=== PATIENT | female | born 1995 | race Caucasian/White ===

== ENCOUNTER → 2020-06-19 17:32 | Outpatient (CLI) | payer OTHER, SELFPAY ==
[2020-06-19 17:52] LABS: Microscopic, Urine URINE MICROSCOPIC (MICROSCOPIC)
[2020-06-19 18:17] LABS: Basophils % 0.3 % (0.1-2.0); Eosinophils # 0.2 K/mm3 (0.0-0.4); Eosinophils % 1.1 % (0.1-12.0); Hematocrit 41.8 % (37.0-47.0); Hemoglobin 13.6 g/dL (12.2-16.2); Lymphocytes # 2.7 K/mm3 (0.7-4.5); Lymphocytes % 19.4 % (10-50); Mean Corpuscular HGB Conc 32.5 g/dL (31.8-35.4); Mean Corpuscular Hemoglobin 28.8 pg (27.0-31.2); Mean Corpuscular Volume 88.5 fl (81-99); Mean Platelet Volume 7.6 fl (7.4-10.4); Monocytes # 0.6 K/mm3 (0.1-1.0); Monocytes % 4.2 % (1.7-9.3); Neutrophils # 10.5 K/mm3 (1.8-7.8); Neutrophils % 75.1 % (37.0-80.0); Platelet Count 277 K/mm3 (142-424); Red Blood Count 4.72 M/mm3 (4.20-5.40); Red Cell Distribution Width 12.9 % (11.5-17.5)
[2020-06-19 18:47] LABS: Erythrocyte Sedimentation Rate 14 mm/hr (0-20)
[2020-06-19 18:55] LABS: Chloride 102 mmol/L (98-107); Potassium 3.9 mmoL/L (3.5-5.1); Sodium 138 mmol/L (136-145)
[2020-06-19 18:57] LABS: Alanine Aminotransferase 16 U/L (12-78); Aspartate Amino Transferase 23 U/L (14-36); Blood Urea Nitrogen 15 mg/dl (7-17); Estimated Glomerular Filt Rate 87 ml/min (>60); GFR (African American) 105 ML/MIN (>60)
[2020-06-19 18:58] LABS: Albumin Level 4.4 g/dl (3.5-5.0); Albumin/Globulin Ratio 1.5 (1.1-1.8); Alkaline Phosphatase 118 U/L (38-126); Anion Gap 12.9 mEq/L (5-15); Bilirubin,Total 0.4 mg/dl (0.2-1.3); Calcium 9.5 mg/dl (8.4-10.2); Carbon Dioxide 27 mmol/L (22.0-30.0); Globulin 2.9 g/dL (1.3-3.2); Glucose 176 mg/dl (74-100); Total Protein,Serum 7.3 g/dl (6.3-8.2)
[2020-06-19 19:23] LABS: Appearance,Urine CLEAR (Clear); Bilirubin,Urine Negative (Negative); Blood, Urine Negative (Negative); Color,Urine YELLOW (Yellow); Glucose,Urine (UA) TRACE (Negative); Ketones,Urine Negative (Negative); Leukocyte Esterase,Urine Negative (Negative); Nitrate,Urine Negative (Negative); Protein,Urine Negative (Negative); Specific Gravity, Urine 1.025 (1.005-1.030); Urobilinogen,Urine 0.2 EU/dl (0.2)
[2020-06-19 20:06] LABS: Bacteria,Urine Trace /lpf; WBC,Urine Occasional #/hpf (0-3)
[2020-06-21 10:05] LABS: Thyroid Peroxidase Antibodies 204 IU/mL (0-34)
[2020-06-22 19:37] LABS: Thyroid Stimulating Immunoglob <0.10 IU/L (0.00-0.55)
[2020-06-25 19:23] LABS: Beef (Bos spp) IgE <0.10 kU/L (<0.35); Lamb/Mutton (Ovis spp) IgE <0.10 kU/L (<0.35)
[2020-06-26 10:33] LABS: Antinuclear Antibodies, IFA Negative (.)
[2020-06-28 22:42] LABS: Complement C1q, Quantitative 15.2 mg/dL (10.3-20.5)
== END ==
PROVIDERS: Visit Provider Allergy & Immunology
DX: L50.1 Idiopathic urticaria (principal); L50.8 Other urticaria
CPT/HCPCS: 36415; 80053; 81001; 83520; 84445; 85025; 85651; 86003; 86008; 86038; 86160; 86352; 86376

== ENCOUNTER → 2021-09-09 11:13 | Outpatient (CLI) | payer OTHER, SELFPAY ==
[2021-09-09 11:54] LABS: HCG,Quantitative 232 mIU/ml (0-5.42)
[2021-09-10 08:37] LABS: Progesterone 26.5 ng/mL (.)
== END ==
PROVIDERS: Visit Provider Obstetrics & Gynecology Reproductive Endocrinology
DX: Z32.00 Encounter for pregnancy test, result unknown (principal)
CPT/HCPCS: 36415; 84144; 84702

== ENCOUNTER → 2021-09-11 11:03 | Outpatient (CLI) | payer OTHER, SELFPAY ==
[2021-09-11 11:56] LABS: HCG,Quantitative 505 mIU/ml (0-5.42)
== END ==
PROVIDERS: Visit Provider Obstetrics & Gynecology Reproductive Endocrinology
DX: Z32.01 Encounter for pregnancy test, result positive (principal)
CPT/HCPCS: 36415; 84702

== ENCOUNTER → 2021-10-09 17:38 | Outpatient (CLI) | payer BC, SELFPAY ==
[2021-10-09 18:24] LABS: Basophils # 0.1 K/mm3 (0-0.2); Basophils % 0.8 % (0.1-2.0); Eosinophils % 0.3 % (0.1-12.0); Hematocrit 38.1 % (37.0-47.0); Lymphocytes # 2.4 K/mm3 (0.7-4.5); Lymphocytes % 16.3 % (10-50); Mean Corpuscular HGB Conc 34.1 g/dL (31.8-35.4); Mean Corpuscular Hemoglobin 30.5 pg (27.0-31.2); Mean Corpuscular Volume 89.6 fl (81-99); Monocytes # 0.5 K/mm3 (0.1-1.0); Monocytes % 3.4 % (1.7-9.3); Neutrophils # 11.6 K/mm3 (1.8-7.8); Neutrophils % 79.2 % (37.0-80.0); Platelet Count 290 K/mm3 (142-424); Red Blood Count 4.25 M/mm3 (4.20-5.40); Red Cell Distribution Width 13.4 % (11.5-17.5); White Blood Count 14.6 K/mm3 (4.8-10.8)
[2021-10-09 19:07] LABS: Hemoglobin A1C 6.4 % (4.0-6.0)
[2021-10-09 19:24] LABS: Thyroid Stimulating Hormone 5.58 uIU/mL (0.465-4.68)
[2021-10-11 09:15] LABS: Rubella Antibodies, IgM <20.0 AU/mL (0.0-19.9)
[2021-10-11 11:12] LABS: HIV Screen 4th Generation wRfx Non Reactive (Non Reactive)
[2021-10-12 02:17] LABS: Rubella Antibodies, IgG <0.90 index (Immune >0.99)
[2021-11-01 17:30] LABS: Hep A Ab, IgM NEGATIVE; Hepatitis B Core Antibody IgM NEGATIVE; Hepatitis B Surface Antigen NEGATIVE; Hepatitis C Antibody <0.1
== END ==
PROVIDERS: PCP Nurse Practitioner Family; Visit Provider Obstetrics & Gynecology
DX: Z34.91 Encounter for supervision of normal pregnancy, unspecified, first trimester (principal); O24.019 Pre-existing type 1 diabetes mellitus, in pregnancy, unspecified trimester
CPT/HCPCS: 36415; 80074; 83036; 84443; 85025; 86703; 86762; 86850; G0432

== ENCOUNTER → 2021-10-17 18:08 | Outpatient (CLI) | payer BC, SELFPAY ==
[2021-11-01 18:35] LABS: Hep A Ab, IgM NEGATIVE; Hepatitis B Core Antibody IgM NEGATIVE; Hepatitis B Surface Antigen NEGATIVE; Hepatitis C Antibody <0.1
== END ==
PROVIDERS: Visit Provider Obstetrics & Gynecology
DX: Z34.91 Encounter for supervision of normal pregnancy, unspecified, first trimester (principal)
CPT/HCPCS: 80074

== ENCOUNTER → 2022-04-01 18:23 | Outpatient (CLI) | payer BC, SELFPAY ==
[2022-04-01 18:59] LABS: Basophils # 0.1 K/mm3 (0-0.2); Basophils % 0.8 % (0.1-2.0); Eosinophils # 0.1 K/mm3 (0.0-0.4); Eosinophils % 0.5 % (0.1-12.0); Hematocrit 33.8 % (37.0-47.0); Hemoglobin 11.6 g/dL (12.2-16.2); Lymphocytes % 16.4 % (10-50); Mean Corpuscular HGB Conc 34.3 g/dL (31.8-35.4); Mean Corpuscular Hemoglobin 30.1 pg (27.0-31.2); Mean Corpuscular Volume 87.6 fl (81-99); Mean Platelet Volume 8.8 fl (7.4-10.4); Monocytes # 0.5 K/mm3 (0.1-1.0); Monocytes % 4.2 % (1.7-9.3); Neutrophils # 9.7 K/mm3 (1.8-7.8); Neutrophils % 78.1 % (37.0-80.0); Platelet Count 232 K/mm3 (142-424); Red Blood Count 3.86 M/mm3 (4.20-5.40); Red Cell Distribution Width 13.9 % (11.5-17.5); White Blood Count 12.4 K/mm3 (4.8-10.8)
[2022-04-01 19:46] LABS: Activated Partial Thrombo Time 27.9 seconds (22.8-30.6); Fibrinogen 436 mg/dL (229.9-363.5); INR 0.86 (0.9-1.1); Prothrombin Time 9.4 seconds (10.1-12.5)
[2022-04-01 22:28] LABS: D-Dimer 1.07 ug/mL (0.0-0.5); Potassium 3.8 mmoL/L (3.5-5.1); Sodium 139 mmol/L (136-145)
[2022-04-01 22:29] LABS: Alanine Aminotransferase 18 U/L (12-78); Anion Gap 14.8 mEq/L (5-15); Aspartate Amino Transferase 28 U/L (14-36); Blood Urea Nitrogen 8 mg/dl (7-17); Calcium 8.1 mg/dl (8.4-10.2); Carbon Dioxide 23 mmol/L (22.0-30.0); Chloride 105 mmol/L (98-107); Estimated Glomerular Filt Rate 100 ml/min (>60); GFR (African American) 121 ML/MIN (>60); Glucose 124 mg/dl (74-100); Uric Acid 4.6 mg/dl (2.5-6.2)
== END ==
PROVIDERS: Obstetrics & Gynecology; PCP Nurse Practitioner Family
DX: O24.019 Pre-existing type 1 diabetes mellitus, in pregnancy, unspecified trimester (principal)
CPT/HCPCS: 36415; 80048; 84450; 84460; 84550; 85025; 85378; 85384; 85610; 85730

== ENCOUNTER → 2022-04-14 07:03 | Outpatient (CLI) | payer BC, SELFPAY ==
[2022-04-14 20:24] LABS: Basophils # 0.1 K/mm3 (0-0.2); Basophils % 0.5 % (0.1-2.0); Eosinophils % 0.2 % (0.1-12.0); Hematocrit 35.3 % (37.0-47.0); Hemoglobin 11.7 g/dL (12.2-16.2); Lymphocytes # 2.1 K/mm3 (0.7-4.5); Lymphocytes % 17.4 % (10-50); Mean Corpuscular Hemoglobin 29.3 pg (27.0-31.2); Mean Corpuscular Volume 88.7 fl (81-99); Mean Platelet Volume 9.2 fl (7.4-10.4); Monocytes # 0.6 K/mm3 (0.1-1.0); Monocytes % 4.8 % (1.7-9.3); Neutrophils # 9.3 K/mm3 (1.8-7.8); Neutrophils % 77.1 % (37.0-80.0); Platelet Count 191 K/mm3 (142-424); Red Blood Count 3.99 M/mm3 (4.20-5.40); Red Cell Distribution Width 13.5 % (11.5-17.5); White Blood Count 12.1 K/mm3 (4.8-10.8)
[2022-04-14 21:00] LABS: Chloride 103 mmol/L (98-107); Sodium 137 mmol/L (136-145)
[2022-04-14 21:01] LABS: Potassium 3.5 mmoL/L (3.5-5.1)
[2022-04-14 21:03] LABS: Alanine Aminotransferase 17 U/L (12-78); Albumin Level 3.2 g/dl (3.5-5.0); Albumin/Globulin Ratio 1.1 (1.1-1.8); Alkaline Phosphatase 161 U/L (38-126); Anion Gap 12.5 mEq/L (5-15); Aspartate Amino Transferase 29 U/L (14-36); Bilirubin,Total 0.2 mg/dl (0.2-1.3); Blood Urea Nitrogen 9 mg/dl (7-17); Carbon Dioxide 25 mmol/L (22.0-30.0); Estimated Glomerular Filt Rate 100 ml/min (>60); GFR (African American) 121 ML/MIN (>60); Globulin 2.8 g/dL (1.3-3.2)
[2022-04-14 21:04] LABS: Calcium 8.7 mg/dl (8.4-10.2); Glucose 147 mg/dl (74-100)
[2022-04-14 21:19] LABS: Creatinine,Urine Random 110 mg/dL (Not Estab.)
[2022-04-14 21:21] LABS: Uric Acid 5.1 mg/dl (2.5-6.2)
== END ==
PROVIDERS: PCP Nurse Practitioner Family
DX: O13.4 Gestational [pregnancy-induced] hypertension without significant proteinuria, complicating childbirth (principal)
CPT/HCPCS: 36415; 80053; 82570; 84155; 84550; 85025

== ENCOUNTER → 2022-06-21 14:05 | Outpatient (CLI) | payer BC, SELFPAY ==
[2022-06-21 14:28] LABS: Chloride 105 mmol/L (98-107); Sodium 141 mmol/L (136-145)
[2022-06-21 14:29] LABS: Potassium 3.9 mmoL/L (3.5-5.1)
[2022-06-21 14:31] LABS: Alanine Aminotransferase 36 U/L (12-78); Albumin Level 4.2 g/dl (3.5-5.0); Albumin/Globulin Ratio 1.6 (1.1-1.8); Alkaline Phosphatase 113 U/L (38-126); Anion Gap 13.9 mEq/L (5-15); Aspartate Amino Transferase 36 U/L (14-36); Bilirubin,Total 0.3 mg/dl (0.2-1.3); Blood Urea Nitrogen 11 mg/dl (7-17); Calcium 8.4 mg/dl (8.4-10.2); Carbon Dioxide 26 mmol/L (22.0-30.0); Estimated Glomerular Filt Rate 53 ml/min (>60); GFR (African American) 65 ML/MIN (>60); Globulin 2.7 g/dL (1.3-3.2); Glucose 268 mg/dl (74-100); Magnesium 1.7 mg/dl (1.6-2.3); Total Protein,Serum 6.9 g/dl (6.3-8.2)
[2022-06-21 14:38] LABS: Basophils % 0.3 % (0.1-2.0); Eosinophils % 0.4 % (0.1-12.0); Hematocrit 33.2 % (37.0-47.0); Hemoglobin 11.2 g/dL (12.2-16.2); Lymphocytes # 1.6 K/mm3 (0.7-4.5); Lymphocytes % 20.3 % (10-50); Mean Corpuscular HGB Conc 33.6 g/dL (31.8-35.4); Mean Corpuscular Hemoglobin 26.6 pg (27.0-31.2); Mean Corpuscular Volume 79.2 fl (81-99); Mean Platelet Volume 7.7 fl (7.4-10.4); Monocytes # 0.3 K/mm3 (0.1-1.0); Monocytes % 4.1 % (1.7-9.3); Neutrophils # 5.8 K/mm3 (1.8-7.8); Neutrophils % 74.7 % (37.0-80.0); Platelet Count 278 K/mm3 (142-424); Red Blood Count 4.19 M/mm3 (4.20-5.40); Red Cell Distribution Width 13.8 % (11.5-17.5); White Blood Count 7.8 K/mm3 (4.8-10.8)
[2022-06-21 15:03] LABS: Thyroid Stimulating Hormone 1.85 uIU/mL (0.465-4.68)
== END ==
PROVIDERS: PCP Nurse Practitioner Family; Visit Provider Nurse Practitioner Family
DX: O16.5 Unspecified maternal hypertension, complicating the puerperium (principal); E83.42 Hypomagnesemia
CPT/HCPCS: 36415; 80053; 83735; 84443; 85025

== ENCOUNTER → 2022-08-24 08:00 | Outpatient (CLI) | payer BC, SELFPAY ==
--- NOTE | 2022-08-24 08:01 | CA_ITS ---
APPROVED REPORT EXAM: Comprehensive 2D, Doppler, and color-flow Echocardiogram Glove Presser: Dilma Johnson CRT Ht: 5 ft 3 in Wt: 248lbs BSA: 2.12 BP: 121/80 mmHg Indications: Abnormal ECG, Chest Pain, Shortness of Breath, Diabetes 2D Dimensions LVOT 2.03 cm (M/F) 1.5-2.5 LA Volume 22.10 mL LA Volume Index 10.20 mL/m2 (M/F) 16-34 M-Mode Dimensions RVDd 2.83 cm (0.9-2.6) LA Diam 3.78 cm (1.9-4.0) LVDd 4.38 cm (3.5-5.7) Ao Diam 3.46 cm (2.0-3.7) LVDs 2.98 cm (3.5-5.7) IVSd 1.43 cm (0.6-1.1) PWd 0.83 cm (0.6-1.1) EF (Teich) 60.40% FS 32.00% EDV (Teich) 86.80 mL TAPSE 1.97 (<1.7) ESV (Teich) 34.40 mL LV Diastology E Decel Time 217.00 (160-240 msec) E/A Ratio 1.54 MED E' 5.50 (< 7 cm/sec) MED A' 8.20 cm/s E'/MED E' Ratio 11.22 (>14) LAT E' 7.00 (<10 cm/sec) LAT A' 5.10 cm/s E/LAT E' Ratio 8.81 (>14) Aortic Valve AO Peak GR. 4.80 mmHg Mitral Valve MV A Velocity 40.00 (40-130 cm/s) E/A Ratio 1.54 MV Decel. Time 217.00 (160-240 ms) Pulmonary Valve PV Peak Velocity 146.00 (50-150 cm/s) Tricuspid Valve TR P. Velocity 248.00 cm/s RAP Estimate 10.00 mmHg RVSP 34.60 mmHg Left Ventricle Left atrium is normal size, left ventricle is normal size, estimated ejection fraction 55% with no regional wall motion abnormality, diastolic parameters are inconclusive in the study. Right Ventricle Right atrium right ventricular normal size and contractility. Aortic Valve Aortic valve is grossly normal there is no aortic stenosis or aortic insufficiency. Mitral Valve Mitral valve is grossly normal, there is trace mitral regurgitation. Tricuspid Valve Tricuspid valve grossly normal, there is trace tricuspid regurgitation, tricuspid regurgitation jet velocity is inadequate for calculation of the right ventricular systolic pressure. Pulmonic Valve Pulmonic valve is poorly visualized. Great Vessels Aortic root is normal size. A mild Inferior vena cava is normal size with normal inspiratory collapse. Pericardium No significant pericardial effusion noted. Conclusion 1. Normal left ventricular size preserved left ventricular systolic function, estimated ejection fraction 55% with no regional wall motion abnormality, diastolic parameters are inconclusive. 2. Trace mitral and tricuspid regurgitation of no hemodynamic significance. 3. No significant pericardial effusion noted. 4. Inferior vena cava is normal size with normal inspiratory collapse. Electronically signed by : José Luis Logan MD 08/24/2022 13:03:09
== END ==
PROVIDERS: PCP Nurse Practitioner Family; Visit Provider Internal Medicine Cardiovascular Disease
DX: O16.5 Unspecified maternal hypertension, complicating the puerperium (principal); R06.00 Dyspnea, unspecified; R07.9 Chest pain, unspecified; R94.31 Abnormal electrocardiogram [ECG] [EKG]
CPT/HCPCS: 93306

== ENCOUNTER → 2022-08-27 14:37 | Outpatient (CLI) | payer BC, SELFPAY ==
[2022-08-27 15:05] LABS: Chloride 101 mmol/L (98-107)
[2022-08-27 15:06] LABS: Potassium 3.4 mmoL/L (3.5-5.1); Sodium 137 mmol/L (136-145)
[2022-08-27 15:08] LABS: Blood Urea Nitrogen 11 mg/dl (7-17); Estimated Glomerular Filt Rate 85 ml/min (>60); GFR (African American) 103 ML/MIN (>60)
[2022-08-27 15:09] LABS: Anion Gap 10.4 mEq/L (5-15); Calcium 8.3 mg/dl (8.4-10.2); Carbon Dioxide 29 mmol/L (22.0-30.0); Glucose 198 mg/dl (74-100)
== END ==
PROVIDERS: PCP Nurse Practitioner Family; Visit Provider Internal Medicine Cardiovascular Disease
DX: O16.5 Unspecified maternal hypertension, complicating the puerperium (principal); R06.00 Dyspnea, unspecified; R07.9 Chest pain, unspecified; R94.31 Abnormal electrocardiogram [ECG] [EKG]
CPT/HCPCS: 36415; 80048; 83880

== ENCOUNTER 2022-09-02 08:00 | Emergency (ER) | payer BC, SELFPAY ==
[2022-09-02 08:10] VITALS: BP 156/84; PULSE 94; RESP 20; TEMP 37.1; O2SAT 97; BMI 44.7
--- NOTE | 2022-09-02 08:44 | EXP.UTC ---
Discharge Plan Disposition Patient Disposition: Home, Self-Care Condition: Good Prescriptions Prescriptions: New mupirocin 2 % ointment 1 applic topical TID 7 Days Qty: 15 0RF No Action famotidine 10 mg tablet 10 mg PO BID Zyrtec 10 mg capsule 10 mg PO DAILY PRN (Reason: .) insulin lispro [Humalog U-100 Insulin] 100 unit/mL solution 150 unit SQ DAILY Label Comments: USE UP TO 150 UNITS PER DAY IN INSULIN PUMP omeprazole 40 mg capsule,delayed release(DR/EC) 40 mg PO DAILY metoprolol succinate 25 mg tablet extended release 24 hr 25 mg PO QDAY losartan-hydrochlorothiazide 50-12.5 mg tablet 1 tab PO DAILY Referrals Follow up/Referrals: Venecia Ramirez [Primary Care Provider] - See instructions Activity Restrictions/Add. Instructions Additional Instructions/Restrictions: Keep the wound clean and dry. Watch the wound for signs of infection, such as redness, swelling, drainage, fever. etc. Apply the topical antibiotic ointment as directed. Take tylenol or ibuprofen for pain. Follow up with her regular doctor. GO TO THE ER FOR ANY WORSENING SYMPTOMS OR CONCERNS. Clinical Impressions Clinical Impression: Tick bite Instructions Patient Instructions: Protect Yourself from Tickborne Illnesses Discharge ED Provider: Damian Urena [facility] General Stated complaint: Bump/sore RT thigh Mode of Arrival: Ambulatory Source of Information: Patient Limitations: No Limitations Time Seen by Provider: 09/02/22 08:43 Description of Symptoms (Recalled from Triage Doc. by RN): right pelvic area tried to take tick off and left head HEENT Symptoms (Recalled from RN notes): No Resp Symptoms (Recalled from RN notes): No Skin Symptoms (Recalled from RN notes): Yes MS Symptoms (Recalled from RN notes): No Functional Status (Recalled from RN notes): n/a History of Present Illness Provider Complaint: She states that she found a tick embedded on her right upper thigh last night. Her attempted to remove it, but part of the tick remains embedded. she denies any other complaints. Related Data Home Medications Medication Instructions Recorded Confirmed insulin lispro 100 unit/mL 150 unit SQ DAILY / 08/21/22 09/02/22 subcutaneous solution (Humalog U-100 Insulin) cetirizine 10 mg capsule (Zyrtec) 10 mg PO DAILY PRN . 08/28/22 09/02/22 famotidine 10 mg tablet 10 mg PO BID , 08/28/22 09/02/22 losartan 50 mg-hydrochlorothiazide 1 tab PO DAILY / 09/02/22 09/02/22 12.5 mg tablet metoprolol succinate 25 mg 25 mg PO QDAY ' 09/02/22 09/02/22 tablet,extended release 24 hr omeprazole 40 mg capsule,delayed 40 mg PO DAILY . 09/02/22 09/02/22 release Previous Rx's Medication Instructions Recorded mupirocin 2 % topical ointment 1 applic topical TID 7 days #15 09/02/22 grams Allergies Allergy/AdvReac Type Severity Reaction Status Date / Time No Known Allergies Allergy Verified 09/02/22 08:16 Worker's Comp Is this a Worker's Comp case?: No [facility] Disclaimer: The information contained in this section may have been updated after the patient was seen, as this information can be updated by other users. Medical History Abnormal electrocardiogram [ECG] [EKG] Chest pain Dyspnea Ilya's disease Hypertension, condition or complication Hypokalemia Restless sleeper T1DM (type 1 diabetes mellitus) Surgical History H/O section Family History Other Cancer Coronary artery disease Diabetes Heart attack Hyperlipidemia Hypertension Stroke Thyroid disorder Social History Smoking Status: Never smoker alcohol intake: never current occupational status: employed Travel in the last 8 weeks:
[2022-09-02 09:31] VITALS: BP 156/84; PULSE 94; RESP 20; TEMP 37.1; O2SAT 97
== END 2022-09-02 09:30 | disposition home or self-care (01) ==
PROVIDERS: Emergency Provider Nurse Practitioner Family; PCP Nurse Practitioner Family
DX: S70.361A Insect bite (nonvenomous), right thigh, initial encounter (principal); E10.9 Type 1 diabetes mellitus without complications; W57.XXXA Bitten or stung by nonvenomous insect and other nonvenomous arthropods, initial encounter
CPT/HCPCS: 99212; 99214; G0463

== ENCOUNTER → 2022-09-16 12:57 | Outpatient (CLI) | payer BC, SELFPAY | PROVIDERS: PCP Nurse Practitioner Family; Visit Provider Internal Medicine Cardiovascular Disease | DX: G47.33 Obstructive sleep apnea (adult) (pediatric) (principal); O16.5 Unspecified maternal hypertension, complicating the puerperium; R06.00 Dyspnea, unspecified; R07.9 Chest pain, unspecified; R94.31 Abnormal electrocardiogram [ECG] [EKG]; R06.83 Snoring | CPT/HCPCS: G0399 ==

== ENCOUNTER 2023-03-13 08:34 | Emergency (ER) | payer BC, SELFPAY ==
[2023-03-13 08:45] VITALS: BP 167/107; PULSE 73; RESP 20; TEMP 36.5; O2SAT 98; BMI 42.9
[2023-03-13 08:56] VITALS: BP 167/107; PULSE 73; RESP 20; TEMP 36.5; O2SAT 98
--- NOTE | 2023-03-13 09:03 | EXP.UTC ---
Discharge Plan Disposition Patient Disposition: Home, Self-Care Condition: Good Prescriptions Prescriptions: New sulfamethoxazole-trimethoprim [Bactrim DS] 800-160 mg tablet 1 tab PO Q12H Qty: 20 0RF No Action levothyroxine 50 mcg tablet 50 mcg PO DAILY (DME) Dexcom G6 Sensor Device See Rx Instructions .ROUTE .MEDSUPPLY Qty: 1 Patient Comments: CHANGE EVERY 10 DAYS Rx Instructions: As directed (DME) Dexcom G6 Transmitter Device See Rx Instructions .ROUTE .MEDSUPPLY Qty: 1 Rx Instructions: As directed insulin lispro [Humalog U-100 Insulin] 100 unit/mL solution 150 unit SQ DAILY Patient Comments: USE UP TO 150 UNITS PER DAY IN INSULIN PUMP Referrals Follow up/Referrals: Venecia Ramirez [Primary Care Provider] - See instructions Clinical Impressions Clinical Impression: Laceration of finger of left hand Qualifiers: Encounter type: initial encounter Finger: index finger Damage to nail status: without damage Foreign body presence: without foreign body Qualified Code(s): S61.211A - Laceration without foreign body of left index finger without damage to nail, initial encounter Instructions Patient Instructions: DI for Laceration Repair -- Finger Discharge ED Provider: Fifi Garces [facility] General Stated complaint: [id number] left index finger, home accident Mode of Arrival: Ambulatory Source of Information: Patient Limitations: No Limitations Time Seen by Provider: 03/13/23 09:05 Description of Symptoms (Recalled from Triage Doc. by RN): PATIENT C/O CUT ON LEFT INDEX FINGER THAT HAPPENED YESTERDAY THAT IS NOW RED HEENT Symptoms (Recalled from RN notes): No Resp Symptoms (Recalled from RN notes): No Skin Symptoms (Recalled from RN notes): Yes MS Symptoms (Recalled from RN notes): No Functional Status (Recalled from RN notes): WNL History of Present Illness Provider Complaint: Cut left index finger with dull but clean kitchen knife 4 days ago. Area is red, swollen and painful. Last tetanus shot just under a year ago. Onset (ago): day(s) (4) Location: left and upper extremity Radiation: non-radiation Relieving factors: none Exacerbating factors: none Associated symptoms: denies other symptoms Treatments prior to arrival: none Related Data Home Medications Medication Instructions Recorded Confirmed insulin lispro 100 unit/mL 150 unit SQ DAILY Diabetes 08/21/22 03/13/23 subcutaneous solution (Humalog U-100 Insulin) blood-glucose sensor (Dexcom G6 #1 ea 12/02/22 03/03/23 Sensor device) blood-glucose transmitter (Dexcom #1 ea 12/02/22 03/03/23 G6 Transmitter device) levothyroxine 50 mcg tablet 50 mcg PO DAILY Hashimotos 12/02/22 03/13/23 Thyroiditis Previous Rx's Medication Instructions Recorded sulfamethoxazole 800 1 tab PO Q12H #20 tabs 03/13/23 mg-trimethoprim 160 mg tablet (Bactrim DS) Allergies Allergy/AdvReac Type Severity Reaction Status Date / Time No Known Allergies Allergy Verified 03/03/23 09:04 Worker's Comp Is this a Worker's Comp case?: No [facility] Disclaimer: The information contained in this section may have been updated after the patient was seen, as this information can be updated by other users. Medical History Abnormal electrocardiogram [ECG] [EKG] Chest pain Dyspnea Ilya's disease Hypertension, condition or complication Hypokalemia Obstructive sleep apnea syndrome Newly diagnosed mild to moderate LOWELL in the setting of morbid obesity, hypertension, type 1 diabetes; currently untreated as patient was here today to discuss treatment options. Restless sleeper T1DM (type 1 diabetes mellitus) Surgical History H/O section Family History Other Cancer Coronary artery disease Diabetes Heart att
== END 2023-03-13 09:19 | disposition home or self-care (01) ==
PROVIDERS: Emergency Provider Physician Assistant; PCP Nurse Practitioner Family
DX: S61.211A Laceration without foreign body of left index finger without damage to nail, initial encounter (principal); I10 Essential (primary) hypertension; E10.9 Type 1 diabetes mellitus without complications; G47.33 Obstructive sleep apnea (adult) (pediatric); G25.81 Restless legs syndrome; Z79.4 Long term (current) use of insulin; W26.0XXA Contact with knife, initial encounter
CPT/HCPCS: 99212; 99214; G0463

== ENCOUNTER → 2023-03-26 12:41 | Outpatient (CLI) | payer BC, SELFPAY ==
[2023-03-28 08:54] LABS: Hep B Surface Ab, Qual Non Reactive (.); Hepatitis B Surf Ab Quant <3.1 mIU/mL (Immunity>9.9)
== END ==
PROVIDERS: PCP Nurse Practitioner Family; Visit Provider Nurse Practitioner Family
DX: Z01.84 Encounter for antibody response examination (principal)
CPT/HCPCS: 36415; 86706

== ENCOUNTER 2023-04-24 09:08 | Emergency (ER) | payer BC, SELFPAY ==
[2023-04-24 09:25] VITALS: BP 127/73; PULSE 114; RESP 21; TEMP 37.6; O2SAT 97; BMI 41.1
[2023-04-24 09:29] LABS: UTC Strep Screen (Rapid) Positive (Negative)
--- NOTE | 2023-04-24 09:33 | EXP.UTC ---
Discharge Plan Disposition Patient Disposition: Home, Self-Care Condition: Good Prescriptions Prescriptions: New amoxicillin [amoxicillin] 875 mg tablet 875 mg PO Q12H Qty: 20 0RF methylprednisolone 4 mg Tablets,Dose Pack 4 mg PO DIRECTED Qty: 21 0RF tlnxdmtedtcddzo-vmcvogmyk-VM [Bromfed DM] 2-30-10 mg/5 mL Syrup 5 ml PO Q6H PRN (Reason: Cough) Qty: 240 0RF No Action levothyroxine 50 mcg tablet 50 mcg PO DAILY (DME) Dexcom G6 Sensor Device See Rx Instructions .ROUTE .MEDSUPPLY Qty: 1 Patient Comments: CHANGE EVERY 10 DAYS Rx Instructions: As directed (DME) Dexcom G6 Transmitter Device See Rx Instructions .ROUTE .MEDSUPPLY Qty: 1 Rx Instructions: As directed insulin lispro [Humalog U-100 Insulin] 100 unit/mL solution 150 unit SQ DAILY Patient Comments: USE UP TO 150 UNITS PER DAY IN INSULIN PUMP sulfamethoxazole-trimethoprim [Bactrim DS] 800-160 mg tablet 1 tab PO Q12H Qty: 20 0RF Referrals Follow up/Referrals: Venecia Ramirez [Primary Care Provider] - See instructions Activity Restrictions/Add. Instructions Additional Instructions/Restrictions: Drink plenty of fluids. Take tylenol or ibuprofen for pain or fever. Take the medications as directed. Follow up with your regular doctor. GO TO THE ER FOR ANY WORSENING SYMPTOMS Clinical Impressions Clinical Impression: Strep throat Stand Alone Forms Stand Alone Forms: Work/School Release Instructions Patient Instructions: Strep Throat, DI for Strep Throat Discharge ED Provider: Damian Urena [facility] General Stated complaint: suspected strep, ear/throat pain Time Seen by Provider: 04/24/23 09:32 History of Present Illness Provider Complaint: She states that for the past 3 days she has had sore throat, chills, fever, and malaise. Related Data Home Medications Medication Instructions Recorded Confirmed insulin lispro 100 unit/mL 150 unit SQ DAILY Diabetes 08/21/22 03/13/23 subcutaneous solution (Humalog U-100 Insulin) blood-glucose sensor (Dexcom G6 #1 ea 12/02/22 03/03/23 Sensor device) blood-glucose transmitter (Dexcom #1 ea 12/02/22 03/03/23 G6 Transmitter device) levothyroxine 50 mcg tablet 50 mcg PO DAILY Hashimotos 12/02/22 03/13/23 Thyroiditis Previous Rx's Medication Instructions Recorded sulfamethoxazole 800 1 tab PO Q12H #20 tabs 03/13/23 mg-trimethoprim 160 mg tablet (Bactrim DS) amoxicillin 875 mg tablet 875 mg PO Q12H #20 tabs 04/24/23 xemkypayqhchfhg-nlbcxgiyytavghe-CG 5 ml PO Q6H PRN Cough #240 mL 04/24/23 2 mg-30 mg-10 mg/5 mL oral syrup (Bromfed DM) methylprednisolone 4 mg tablets in 4 mg PO DIRECTED #21 tabs 04/24/23 a dose pack Allergies Allergy/AdvReac Type Severity Reaction Status Date / Time No Known Allergies Allergy Verified 03/03/23 09:04 [facility] Disclaimer: The information contained in this section may have been updated after the patient was seen, as this information can be updated by other users. Medical History Abnormal electrocardiogram [ECG] [EKG] Chest pain Dyspnea Ilya's disease Hypertension, condition or complication Hypokalemia Obstructive sleep apnea syndrome Newly diagnosed mild to moderate LOWELL in the setting of morbid obesity, hypertension, type 1 diabetes; currently untreated as patient was here today to discuss treatment options. Restless sleeper T1DM (type 1 diabetes mellitus) Surgical History H/O section Family History Other Cancer Coronary artery disease Diabetes Heart attack Hyperlipidemia Hypertension Stroke Thyroid disorder Social History Smoking Status: Never smoker alcohol intake: never current occupa
[2023-04-24 09:45] VITALS: BP 127/73; PULSE 114; RESP 21; TEMP 37.6; O2SAT 97
== END 2023-04-24 09:49 | disposition home or self-care (01) ==
PROVIDERS: Emergency Provider Nurse Practitioner Family; PCP Nurse Practitioner Family
DX: J02.0 Streptococcal pharyngitis (principal); R07.0 Pain in throat; R50.9 Fever, unspecified; R53.81 Other malaise; H92.09 Otalgia, unspecified ear; E10.9 Type 1 diabetes mellitus without complications; Z79.4 Long term (current) use of insulin
CPT/HCPCS: 87880; 99212; 99214; G0463

== ENCOUNTER 2023-10-05 08:01 | Emergency (ER) | payer BC, SELFPAY ==
[2023-10-05 08:15] VITALS: BP 140/95; PULSE 109; RESP 19; TEMP 36.9; O2SAT 96; BMI 41.1
[2023-10-05 08:36] LABS: UTC Strep Screen (Rapid) Positive (Negative)
--- NOTE | 2023-10-05 08:42 | ED_ITS ---
Discharge Plan Disposition Patient Disposition: Home, Self-Care Condition: Good Prescriptions Prescriptions: New amoxicillin 875 mg tablet 875 mg PO Q12H Qty: 20 0RF eizowsthcokcthk-jgqruitqy-GH [Bromfed DM] 2-30-10 mg/5 mL Syrup 5 ml PO Q6H PRN (Reason: Cough) Qty: 240 0RF No Action levothyroxine 50 mcg tablet 50 mcg PO DAILY (DME) Dexcom G6 Sensor Device See Rx Instructions .ROUTE .MEDSUPPLY Qty: 1 Patient Comments: CHANGE EVERY 10 DAYS Rx Instructions: As directed (DME) Dexcom G6 Transmitter Device See Rx Instructions .ROUTE .MEDSUPPLY Qty: 1 Rx Instructions: As directed insulin lispro [Humalog U-100 Insulin] 100 unit/mL solution 150 unit SQ DAILY Patient Comments: USE UP TO 150 UNITS PER DAY IN INSULIN PUMP Referrals Follow up/Referrals: Venecia Ramirez [Primary Care Provider] - See instructions Activity Restrictions/Add. Instructions Additional Instructions/Restrictions: Drink plenty of fluids. Take tylenol or ibuprofen for pain or fever. Take the medications as directed. Follow up with your regular doctor. GO TO THE ER FOR ANY WORSENING SYMPTOMS Throw your tooth brush away and get a new one. Clinical Impressions Clinical Impression: Strep throat Stand Alone Forms Stand Alone Forms: Work/School Release Instructions Patient Instructions: Strep Throat, DI for Strep Throat Discharge ED Provider: Damian Urena [facility] General Stated complaint: sore throat, LEMUS Mode of Arrival: Ambulatory Source of Information: Patient Limitations: No Limitations Time Seen by Provider: 10/05/23 08:42 Description of Symptoms (Recalled from Triage Doc. by RN): Pt's symptoms are sore throat, and nausea. HEENT Symptoms (Recalled from RN notes): Yes Resp Symptoms (Recalled from RN notes): No Skin Symptoms (Recalled from RN notes): No MS Symptoms (Recalled from RN notes): No Functional Status (Recalled from RN notes): n/a History of Present Illness Provider Complaint: She states that for the past 2 days she has had sore throat, malaise, fever, and a cough. Related Data Home Medications Medication Instructions Recorded Confirmed insulin lispro 100 unit/mL 150 unit SQ DAILY Diabetes 08/21/22 10/05/23 subcutaneous solution (Humalog U-100 Insulin) blood-glucose sensor (Dexcom G6 #1 ea 12/02/22 09/01/23 Sensor device) blood-glucose transmitter (Dexcom #1 ea 12/02/22 09/01/23 G6 Transmitter device) levothyroxine 50 mcg tablet 50 mcg PO DAILY Hashimotos 12/02/22 10/05/23 Thyroiditis Previous Rx's Medication Instructions Recorded amoxicillin 875 mg tablet 875 mg PO Q12H #20 tabs 10/05/23 xjivdsqqtfnmdbq-sgmhwokathgzhgf-HL 5 ml PO Q6H PRN Cough #240 mL 10/05/23 2 mg-30 mg-10 mg/5 mL oral syrup (Bromfed DM) Allergies Allergy/AdvReac Type Severity Reaction Status Date / Time No Known Allergies Allergy Verified 10/05/23 08:32 Worker's Comp Is this a Worker's Comp case?: No [facility] Disclaimer: The information contained in this section may have been updated after the patient was seen, as this information can be updated by other users. Medical History Obstructive sleep apnea syndrome Hypokalemia Restless sleeper Hypertension, condition or complication Dyspnea Chest pain Abnormal electrocardiogram [ECG] [EKG] Ilya's disease T1DM (type 1 diabetes mellitus) Surgical History H/O section Family History Other Cancer Coronary artery disease Diabetes Heart attack Hyperlipidemia Hypertension Stroke Thyroid disorder Social History Smoking Status: Never smoker alcohol intake: never current occupational status: employed Travel in the last 8 weeks: None ROS Obtained: Yes All systems reviewed & no additional complaints except as documented Constitutional Constitutional: Reports chills and Reports fever(s) Eyes Eyes: Denies eye discharge ENT Ears, Nose, Mouth, and Throat: Reports as per HPI Cardiovascular Cardiovascular: Denies chest pain Respiratory Respiratory: Denies chest congestion and Reports cough Gastrointestinal Gastrointestingal: Reports nausea; Denies abdominal pain, constipation, cramping, diarrhea or vomiting Musculoskeletal Musculoskeletal: Denies arthralgias Integumentary/Breasts Skin/Breast: Denies rash Neurologic Neurologic: Denies paresthesias Physical Exam General General appearance: alert and in no apparent distress Head Head exam: atraumatic, normocephalic and normal inspection Eye Eye exam: Present normal appearance, PERRL and EOMI ENT ENT exam: Present mucous membranes moist and normal external ear exam Expanded ENT Exam TM/Canal exam: Bilateral TM: erythema and bulging Nose exam: Absent sinus tenderness Mouth exam: Present normal external inspection; Absent drooling Teeth exam: Present normal inspection Throat exam: Present tonsillar erythema, tonsillomegaly and tonsillar exudate Neck Neck exam: Present normal inspection, full ROM and trachea midline; Absent tenderness, meningismus or lymphadenopathy Chest Chest inspection: Present normal inspection and symmetric chest wall rise; Absent tenderness Respiratory Respiratory exam: Present normal lung sounds bilaterally; Absent respiratory distress, wheezes, stridor or accessory muscle use Cardiovascular Cardiovascular exam: Present regular rate and normal rhythm; Absent systolic murmur or diastolic murmur Abdominal Exam Abdominal exam: Present soft and normal bowel sounds; Absent distention, tenderness, guarding, rebound or rigidity Extremities Exam Extremities exam: Present normal inspection and normal capillary refill; Absent calf tenderness Back Exam Back exam: Present normal inspection and full ROM; Absent tenderness, CVA tenderness (R) or CVA tenderness (L) Neurological Exam Neurological exam: Present alert, oriented X3 and CN II-XII intact Psychiatric Psychiatric exam: Present normal affect and normal mood Skin Skin exam: Present warm, dry, intact and normal color Medical Decision Making Medical Records Medical records reviewed: No I reviewed the patient's medical records. Jordi Inquiry Pt receiving controlled substance: No Vital Signs: 10/05/23 08:15 Temperature 98.4 F Temperature Source Oral Pulse Rate [Right Radial] 109 H Respiratory Rate 19 Blood Pressure [Right Arm] 140/95 H Blood Pressure Mean [Right Arm] 110 Blood Pressure Source [Right Arm] Automatic Cuff Blood Pressure Position [Right Arm] Sitting 02 Sat by Pulse Oximetry 96 Oxygen Delivery Method Room Air Lab Data Lab results reviewed: Yes I reviewed the patient's lab results. Lab Results 10/05/23 08:21: Strep Scn Rapid Clinic Positive A
[2023-10-05 09:05] VITALS: BP 140/95; PULSE 109; RESP 19; TEMP 36.9; O2SAT 96
== END 2023-10-05 09:05 | disposition home or self-care (01) ==
PROVIDERS: Emergency Provider Nurse Practitioner Family; PCP Nurse Practitioner Family
DX: J02.0 Streptococcal pharyngitis (principal); R07.0 Pain in throat; R50.9 Fever, unspecified; R05.9 Cough, unspecified
CPT/HCPCS: 87880; 99212; 99214; G0463

== ENCOUNTER 2024-02-29 15:07 | Outpatient (POV) | payer BC, SELFPAY | END 2024-02-29 23:59 | disposition home or self-care (01) | LOC: SC 15:07 | PROVIDERS: Visit Provider Dermatology | DX: Z00.00 Encounter for general adult medical examination without abnormal findings (principal) ==

== ENCOUNTER 2024-05-09 08:50 | Outpatient (POV) | payer BC, SELFPAY | END 2024-05-09 23:59 | disposition home or self-care (01) | LOC: SC 05-10 06:55 | PROVIDERS: Visit Provider Dermatology | DX: Z00.00 Encounter for general adult medical examination without abnormal findings (principal) ==

== ENCOUNTER 2024-07-14 07:22 | Outpatient (CLI) | payer BC, SELFPAY ==
[2024-07-14 08:51] LABS: Creatinine,Urine Random 138 mg/dL (Not Estab.); Microalbumin/Creatinine Ratio 40.4
[2024-07-14 09:09] LABS: Thyroid Stimulating Hormone 4.51 uIU/mL (0.465-4.68)
== END 2024-07-14 23:59 | disposition home or self-care (01) ==
LOC: LAB 07:24
PROVIDERS: PCP Nurse Practitioner Family; Visit Provider Internal Medicine Endocrinology, Diabetes & Metabolism
DX: E10.65 Type 1 diabetes mellitus with hyperglycemia (principal)
CPT/HCPCS: 36415; 82043; 82570; 84443

== ENCOUNTER 2024-08-03 14:54 | Outpatient (CLI) | payer BC, SELFPAY ==
[2024-08-03 16:13] VITALS: BMI 44.1
== END 2024-08-03 23:59 | disposition home or self-care (01) ==
PROVIDERS: PCP Nurse Practitioner Family; Visit Provider Nurse Practitioner Family
DX: E10.65 Type 1 diabetes mellitus with hyperglycemia (principal)
CPT/HCPCS: 97802

== ENCOUNTER 2024-11-24 07:11 | Outpatient (CLI) | payer BC, SELFPAY ==
--- OUTSIDE RECORDS SUMMARY | 2024-11-24 07:13 | XMS_ITS | Clinical Summary ---
Author Organization [facility] Address [address] [place] [address] Care Team Providers Care Screw Down Name Role Phone Venecia Ramirez APRN Primary Care Provider Allergies No known active allergies Medications Continuous Blood Gluc Transmit (Dexcom G6 transmitter) misc 01/24/2021 Active Continuous Blood Gluc Sensor (Dexcom G6 Sensor) misc Use every 10 days 07/09/2020 Active HumaLOG 100 UNIT/ML injection vial USE UP TO 150 UNITS PER DAY IN INSULIN PUMP 04/23/2022 Active levothyroxine (Synthroid, Levoxyl) 50 MCG tablet Take 1 tablet (50 mcg) by mouth 1 (one) time each day. 05/21/2022 Active drospirenone-et hinyl estradiol (Jocy) 3-0.02 MG tabletIndicatio ns: control counseling Take 1 tablet by mouth 1 (one) time each day. Take active pill daily, skip placebo. 120 tablet 3 06/19/2022 Active escitalopram (Lexapro) 10 MG tabletIndicatio ns:Anxiety Take 1 tablet (10 mg) by mouth 1 (one) time each day. 30 tablet 5 04/06/2024 Active Active Problems Problem Noted Date Diagnosed Date Encounter for preconception consultation 024 Assessment & Plan (08/30/2023 5:05 PM EDT): - Normal kidney function Has had normal foot and eye exams - due for next in the summer. Last echo 08/2022 showed normal LVEF at 55%, trace mitral and tricuspid regurgitation. Last HbA1c 08/2023 was 6.7. - discussed tight control of glucose to help reduce risk of defects and miscarriage in beginning of . Has pump managed by block placer. Discussed 6 months before [facility] to call us to make appointment with Dr. Chavez to help with insulin regimen. - discussed waiting 18 months to 2 years after classical to [facility] to allow body optimal time for healing - discussed frequent appointments in with growth US, NSTs, glucose checks, and labs to watch for management of glucose and signs of developing pre- eclampsia. Discussed that she is at risk for developing pre-eclampsia again due to previous history and history of T1DM. Discussed starting baby ASA at 12-16 weeks to help. Discussed need for echo and echo in . - Discussed starting vitamin at least 3 months before [facility] - RTC for annual in 04/2024 for pap or call us to help set up apt with Dr. Chavez if before then. - discussed need for section for each subsequent due to history of classical c/s. 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 Thyroid levels ordered. Medication to be adjusted accordingly. Last Assessment & Plan: Clinically euthyroid. Thyroid levels ordered. Medication to be adjusted accordingly. TSH at nob Followed by endocrine- tsh normal on meds at 16 week s Last Assessment & Plan: Euthyroid on current meds. No changes needed Chronic urticaria 07/02/2020 Type 1 diabetes mellitus wit h hyperglycemia, with long-term current use of insulin 07/04/2018 Overview (05/14/2022): Last Assessment & Plan: Stable. No changes needed 2 weeks of dexcom data reviewed 87 % in range. 10 % high 2 % very high no hypos. Immunizations Immunization Administration Dates Next Due Influenza, Unspecified 04/14/2011,03/20/2008, Influenza, injectable, quadr ivalent, preservative free 02/08/2020 Influenza, seasonal, injectable 02/13/2020 Family History Medical History Relation Name Comments Diabetes Brother Hypertension Father Stroke Father Heart attack Mother Hypertension Mother Stroke Mother Relation Name Status Comments Brother Father Mother Social History Tobacco Use Types Packs/Day Years Used Date Smoking Tobacco: Never Passive Smoke Exposure: Never Smokeless Tobacco: Never Humiliation, Afraid, Rape, and Kick questionnair e Answer Date Recorded Within the last year, have y ou been afraid of your partner or ex-partner? No 07/16/2023 Within the last year, have y ou been humiliated or emotionally abused in other ways by your partner or ex-partner? No Within the last year, have y ou been kicked, hit, slapped, or otherwise physically hurt by your partner or ex-partner? No 07/16/2023 Within the last year, have y ou been raped or forced to have any kind of sexual activity by your partner or ex-partner? No 07/16/2023 PHQ-2 Answer Date Recorded Patient Health Questionnaire-2 Score 2 04/06/2024 Hunger Vital Sign Answer Date Recorded Within the past 12 months, y ou worried that your food would run out before you got the money to buy more. Never true 07/16/19 24 Within the past 12 months, t he food you bought just didn't last and you didn't have money to get more. Never true 07/16/2023 PRAPARE - Transportation Answer Date Re corded In the past 12 months, has l ack of transportation kept you from medical appointments or from getting medications? No 02/2024 In the past 12 months, has l ack of transportation kept you from meetings, work, or from getting things needed for daily living? No 07/16/2023 Housing Stability Vital Sign Answer Adrian e Recorded In the last 12 months, was t here a time when you were not able to pay the mortgage or rent on time? No 07/16/2023 In the last 12 months, how many places have you lived? 1 07/16/2023 In the last 12 months, was t here a time when you did not have a steady place to sleep or slept in a usp (including now)? No 07/16/2023 Utilities Answer Date Recorded In the past 12 months has th e [employer], gas, oil, or water company threatened to shut off services in your home? No 07/16/2023 PHQ-2A Answer Date Recorded Patient Health Questionnaire-2 Score 0 07/31/2022 Comments No Sex and Gender Information Value Date Recorded Sex Assigned at Female 08/23/2023 6:55 AM EDT Legal Sex Female 8:45 PM EDT Gender Identity Female 08/23/2023 6:55 AM EDT Sexual Orientation Straight 08/23/2023 6: 55 AM EDT Last Filed Vital Signs Vital Sign Reading Time Taken Comments Blood Pressure 118/82 04/06/2024 4:22 PM EDT Pulse 92 04/06/2024 4:22 PM EDT Temperature 36.9 C (98.4 F) 04/06/2024 4:22 PM EDT Respiratory Rate 16 04/06/2024 4:22 PM EDT Oxygen Saturation 97% 04/06/2024 4:22 PM EDT Inhaled Oxygen Concentration - - Weight 117 kg (257 lb 4.8 oz) 04/06/2024 4:22 PM EDT Height 162.6 cm (5' 4 ) 04/06/2024 4:22 PM EDT Body Mass Index 44.17 04/06/2024 4:22 PM EDT Plan of Treatment Health Maintenance Due Date Last Done Comments [facility]-HIV Screening 1993 [facility]-Hepatitis C Screening 1993 [facility]-Infant/Child/Adol SDOH Screenings 1993 Diabetes: Dental Exam 08/28/2003 [facility]-Varicella Vaccines (1 of 2 - 13+ 2-dose series) 2006 HPV Vaccines (1 - 3-dose series) 2008 [facility]- SDOH Screenings 08/28/2011 [facility]-Adult SDOH Screenings 08/28/2011 [facility]-DTaP,Tdap,and Td Vaccines (1 - Tdap) 2012 [facility]-Hepatitis B Vaccines (1 of 3 - 19+ 3-dose series) 2012 [facility]-Pneumococcal Vaccine: Pediatrics (0 to 5 Years) and At-Risk Patients (6 to 49 Years) (1 of 2 - PCV) 2012 [facility]-Pap Smear 2014 [facility]-Diabetes: Hemoglobin A1C 10/16/2022 04/18/2022, 11/05/2021, 06/09/2021 [facility]-Cervical Cancer Screening 08/28/2023 [facility]-HPV/Cotest 08/28/2023 [id number] Vaccine (3 - 2023- season) 2024 06/17/2021, 09/06/2020 [facility]-Depression Screening 04/06/2025 04/06/2024 [facility]-Zoster Vaccines (1 of 2) 08/28/2043 [facility]-Influenza Vaccine Completed 03/29/2024 , 02/13/2023, 02/13/2020, Additional history exists [facility]-Obesity Intervention Completed 024, 08/30/2023, 07/16/2023, Additional history exists [facility]-HIB Vaccines Aged Out No longer e ligible based on patient's age to complete this topic [facility]-Hepatitis A Vaccines Aged Out No longer eligible based on patient's age to complete this topic [facility]-IPV Vaccines Aged Out No longer e ligible based on patient's age to complete this topic [facility]-Rotavirus Vaccines Aged Out No lo nger eligible based on patient[place] [id number] [facility] Care Teams Screw Down Relationship Specialty Start Date End Date Venecia Ramirez APRN [address] [place] [address] PCP - General 10/18/20
[2024-11-24 07:46] LABS: Albumin Level 4.1 g/dl (3.5-5.0); Chloride 108 mmol/L (98-107); Sodium 138 mmol/L (136-145)
[2024-11-24 07:49] LABS: Alanine Aminotransferase 17 U/L (12-78); Albumin/Globulin Ratio 1.4 (1.1-1.8); Alkaline Phosphatase 98 U/L (38-126); Aspartate Amino Transferase 21 U/L (14-36); Bilirubin,Total 0.4 mg/dl (0.2-1.3); Blood Urea Nitrogen 15 mg/dl (7-17); Carbon Dioxide 25 mmol/L (22.0-30.0); Estimated Glomerular Filt Rate 84 ml/min (>60); GFR (African American) 101 ML/MIN (>60); Globulin 2.9 g/dL (1.3-3.2)
[2024-11-24 07:50] LABS: Calcium 8.6 mg/dl (8.4-10.2); Glucose 143 mg/dl (74-100)
== END 2024-11-24 23:59 | disposition home or self-care (01) ==
LOC: LAB 07:12
PROVIDERS: PCP Nurse Practitioner Family; Visit Provider Internal Medicine Endocrinology, Diabetes & Metabolism
DX: E10.65 Type 1 diabetes mellitus with hyperglycemia (principal); Z79.4 Long term (current) use of insulin
CPT/HCPCS: 36415; 80053